=== PATIENT | male | born 1950 | race Caucasian/White ===

== ENCOUNTER 2018-11-03 17:54 | Outpatient (CLI) | END 2018-11-03 17:55 | disposition home or self-care (01) | LOC: LAB 17:54 | PROVIDERS: ATTEND Internal Medicine Infectious Disease | DX: L02.414 Cutaneous abscess of left upper limb (principal); I48.91 Unspecified atrial fibrillation | CPT/HCPCS: 36415; 80048; 80202; 85025; 85651 ==